=== PATIENT | male | born 1960 | race Caucasian/White ===

== ENCOUNTER 2019-10-04 08:16 | Emergency (ER) | payer OTHER ==
--- NOTE | 2019-10-04 09:34 | EDM.PDOCBH ---
ED HPI GENERAL MEDICAL PROBLEM - General Chief Complaint: Drug or Alcohol Abuse Stated Complaint: EVAL FOR DETOX Time Seen by Provider: 10/04/19 09:20 Source of Information: Reports: Patient, Family. Denies: Old Records History Limitations: Reports: Other (no old records) - History of Present Illness INITIAL COMMENTS - FREE TEXT/NARRATIVE: 59 yo male here with a request for detox, last drank 3 days ago. Has [employer] insurance and apparently [facility] does not accept this. Was on Remeron with good control of depression, but stopped it due to day time sedation. Would like to go back on this med now. Other antidepressants have not worked for him. Sister tells me he has been discussing suicide. Comes here today voluntarily for tx. His last detox tx was about 18 yrs ago. Living with his sister now, was recently homeless after losing his job due to ETOH. Onset: Gradual Duration: Week(s):, Constant Location: Reports: Generalized Quality: Reports: Other (no pain reported) Severity: Moderate (drinking problem) Improves with: Reports: Other (doing better now that he is living with his sister and is not alone) Worsens with: Reports: Other (drinking, social isolation. ) Context: Reports: Other (see HPI) Associated Symptoms: Reports: Other (depression) Treatments CORPORATE ATTORNEY: Reports: Other (see below) (none) - Related Data Allergies Allergy/AdvReac Type Severity Reaction Status Date / Time No Known Allergies Allergy Verified 10/04/19 08:42 Home Meds: Home Meds NK [No Known Home Meds] 10/04/19 [History] Past Medical History HEENT History: Reports: Impaired Vision Musculoskeletal History: Reports: Fracture Psychiatric History: Reports: Addiction - Infectious Disease History Infectious Disease History: Reports: Chicken Pox, Mumps - Past Surgical History Musculoskeletal Surgical History: Reports: Other (See Below) Other Musculoskeletal Surgeries/Procedures:: hip and ankle surgery Social & Family History - Tobacco Use Smoking Status *Q: Heavy Tobacco Smoker Years of Tobacco use: 45 Packs/Tins Daily: 0.5 - Caffeine Use Caffeine Use: Reports: Coffee - Recreational Drug Use Recreational Drug Use: No ED ROS GENERAL - Review of Systems Review Of Systems: See Below Constitutional: Reports: No Symptoms HEENT: Reports: No Symptoms Respiratory: Reports: No Symptoms Cardiovascular: Reports: No Symptoms Endocrine: Reports: No Symptoms GI/Abdominal: Reports: No Symptoms : Reports: No Symptoms Musculoskeletal: Reports: No Symptoms Skin: Reports: No Symptoms Neurological: Reports: Tremors (mild) Psychiatric: Reports: No Symptoms ED EXAM, BEHAVIORAL HEALTH - Physical Exam Exam: See Below Exam Limited By: No Limitations General Appearance: Alert, WD/WN, No Apparent Distress Eye Exam: Bilateral Eye: Normal Inspection Ears: Normal External Exam, Normal Canal, Hearing Grossly Normal Nose: Normal Inspection, No Blood Throat/Mouth: Normal Inspection, Normal Lips, Normal Oropharynx, Normal Voice, No Airway Compromise Head: Atraumatic, Normocephalic Neck: Normal Inspection, Supple, Non-Tender Respiratory/Chest: No Respiratory Distress, Lungs Clear, Normal Breath Sounds, No Accessory Muscle Use Cardiovascular: Regular Rate, Rhythm, No Edema GI/Abdominal: Normal Bowel Sounds, Soft, Non-Tender, No Distention Back Exam: Normal Inspection. No: CVA Tenderness (R), CVA Tenderness (L) Extremities: Normal Inspection, Normal Range of Motion, Non-Tender, No Pedal Edema Neurological: Alert, Normal Mood/Affect, CN II-XII Intact, Normal Cognition, No Motor/Sensory Deficits, Oriented x 3 Psychiatric: Alert, Normal Affect, Normal Cognition, Normal Mood, Oriented Skin Exam: Warm, Dry, Intact, Normal color, No rash COURSE, BEHAVIORAL HEALTH COMP - Course Vital Signs: Last Vital Signs Temp 35.9 C 10/04/19 08:48 Pulse 109 H 10/04/19 08:48 Resp 18 10/04/19 08:48 BP 149/106 H 10/04/19 08:48 Pulse Ox 96 10/04/19 08:48 Orders, Labs, Meds: Active Orders 24 hr Category Date Time Status BASIC METABOLIC PANEL,BMP [CHEM] Stat Lab 10/04/19 09:44 Stop Req TSH ULTRASENSITIVE [CHEM] Stat Lab 10/04/19 09:44 Stop Req UA W/MICROSCOPIC [URIN] Stat Lab 10/04/19 09:38 Stop Req Laboratory Tests 10/04/19 10/04/19 10/04/19 Range/Units 08:41 08:42 09:44 WBC 8.1 (4.5-11.0) K/uL RBC 4.41 (4.30-5.90) M/uL Hgb 14.0 (12.0-15.0) g/dL Hct 42.9 (40.0-54.0) % MCV 97 (80-98) fL MCH 32 H (27-31) pg MCHC 33 (32-36) % Plt Count 471 H (150-400) K/uL Urine Opiates Screen Negative (NEGATIVE) Ur Oxycodone Screen Negative (NEGATIVE) Urine Methadone Screen Negative (NEGATIVE) Ur Propoxyphene Screen Negative (NEGATIVE) Ur Barbiturates Screen Negative (NEGATIVE) Ur Tricyclics Screen Negative (NEGATIVE) Ur Phencyclidine Scrn Negative (NEGATIVE) Ur Amphetamine Screen Negative (NEGATIVE) U Methamphetamines Scrn Negative (NEGATIVE) Urine MDMA Screen Negative (NEGATIVE) U Benzodiazepines Scrn Negative (NEGATIVE) U Cocaine Metab Screen Negative (NEGATIVE) U Marijuana (THC) Screen Negative (NEGATIVE) Ethyl Alcohol < 3 mg/dL Departure - Departure Time of Disposition: 09:50 Disposition: Home, Self-Care 01 Condition: Fair Clinical Impression: Alcohol abuse Alcohol dependence Qualifiers: Substance use status: unspecified alcohol-induced disorder Qualified Code(s): F10.29 - Alcohol dependence with unspecified alcohol-induced disorder Depression Qualifiers: Depression Type: major depressive disorder Major depression recurrence: recurrent Active/Remission status: currently active Major depression episode severity: moderate Qualified Code(s): F33.1 - Major depressive disorder, recurrent, moderate - Discharge Information *PRESCRIPTION DRUG MONITORING PROGRAM REVIEWED*: No *COPY OF PRESCRIPTION DRUG MONITORING REPORT IN PATIENT LEILANI: No Referrals: PCP,None [Primary Care Provider] - Forms: ED Department Discharge Additional Instructions: Go directly to [facility] for screening for their program. Sepsis Event Note - Evaluation Sepsis Screening Result: No Definite Risk - Focused Exam Vital Signs: Vital Signs Temp Pulse Resp BP Pulse Ox 10/04/19 08:48 35.9 C 109 H 18 149/106 H 96 10/04/19 08:42 35.9 C 109 H 18 149/106 H 96 Date Exam was Performed: 10/04/19 Time Exam was Performed: 09:48 - My Orders Last 24 Hours: My Active Orders 10/04/19 09:38 UA W/MICROSCOPIC [URIN] Stat 10/04/19 09:44 BASIC METABOLIC PANEL,BMP [CHEM] Stat TSH ULTRASENSITIVE [CHEM] Stat - Assessment/Plan Last 24 Hours: My Active Orders 10/04/19 09:38 UA W/MICROSCOPIC [URIN] Stat 10/04/19 09:44 BASIC METABOLIC PANEL,BMP [CHEM] Stat TSH ULTRASENSITIVE [CHEM] Stat
== END 2019-10-04 10:08 | disposition home or self-care (01) ==
LOC: JP.ED 08:16
DX: F33.1 Major depressive disorder, recurrent, moderate (principal); F10.29 Alcohol dependence with unspecified alcohol-induced disorder
CPT/HCPCS: 36415; 80305-QW; 85027; 99283; 99284; G0480

== ENCOUNTER 2020-05-08 17:06 | Emergency (ER) | payer OTHER ==
--- NOTE | 2020-05-08 18:06 | EDM.PDOC ---
ED HPI GENERAL MEDICAL PROBLEM - General Chief Complaint: Abdominal Pain Stated Complaint: FEELING FEELING Time Seen by Provider: 05/08/20 17:57 Source of Information: Reports: Patient, RN Notes Reviewed History Limitations: Reports: No Limitations - History of Present Illness INITIAL COMMENTS - FREE TEXT/NARRATIVE: 60-year-old gentleman presents emergency department a complaint of abdominal pain he states been going on for the last couple days has had some nausea and vomiting regular stools no fevers no shortness of breath or chest pain does have a history of abdominal surgeries Abdomen Pain Score (Numeric/FACES): 4 - Related Data Allergies Allergy/AdvReac Type Severity Reaction Status Date / Time No Known Allergies Allergy Verified 05/08/20 17:20 Home Meds: Home Meds NK [No Known Home Meds] 10/04/19 [History] Past Medical History HEENT History: Reports: Impaired Vision Gastrointestinal History: Reports: None Musculoskeletal History: Reports: Fracture Neurological History: Reports: Concussion, Head Trauma Psychiatric History: Reports: Addiction, Depression Endocrine/Metabolic History: Reports: Obesity/BMI 30+ - Infectious Disease History Infectious Disease History: Reports: Chicken Pox, Mumps - Past Surgical History Head Surgeries/Procedures: Reports: None HEENT Surgical History: Reports: None GI Surgical History: Reports: Cholecystectomy, Other (See Below) Other GI Surgeries/Procedures: liver Endocrine Surgical History: Reports: None Neurological Surgical History: Reports: None Musculoskeletal Surgical History: Reports: Other (See Below) Other Musculoskeletal Surgeries/Procedures:: hip and ankle surgery Dermatological Surgical History: Reports: None Social & Family History - Tobacco Use Smoking Status *Q: Current Every Day Smoker Years of Tobacco use: 45 Packs/Tins Daily: 1 Used Tobacco, but Quit: No Second Hand Smoke Exposure: Yes - Caffeine Use Caffeine Use: Reports: None - Recreational Drug Use Recreational Drug Use: No ED ROS GENERAL - Review of Systems Review Of Systems: See Below Constitutional: Denies: Fever, Chills HEENT: Reports: No Symptoms Respiratory: Reports: No Symptoms Cardiovascular: Reports: No Symptoms GI/Abdominal: Reports: Abdominal Pain, Nausea, Vomiting. Denies: Constipation, Diarrhea : Reports: No Symptoms ED EXAM, GI/ABD - Physical Exam Exam: See Below Exam Limited By: No Limitations General Appearance: Alert, WD/WN, No Apparent Distress Respiratory/Chest: No Respiratory Distress, Lungs Clear, Normal Breath Sounds, No Accessory Muscle Use, Chest Non-Tender Cardiovascular: Regular Rate, Rhythm, No Murmur GI/Abdominal Exam: Normal Bowel Sounds, Soft, No Distention, Tender (Tender periumbilical region) Course - Vital Signs Last Recorded V/S: Last Vital Signs Temp 97 F 05/08/20 17:21 Pulse 120 H 05/08/20 17:21 Resp 20 05/08/20 17:21 BP 150/108 H 05/08/20 17:21 Pulse Ox 95 05/08/20 17:21 Departure - Departure Time of Disposition: 18:05 Disposition: Home, Self-Care 01 Condition: Undetermined Clinical Impression: Abdominal pain Qualifiers: Abdominal location: periumbilical Qualified Code(s): R10.33 - Periumbilical pain - Discharge Information Instructions: Abdominal Pain, Adult Referrals: PCP,None [Primary Care Provider] - Sepsis Event Note (ED) - Evaluation Sepsis Screening Result: No Definite Risk - Focused Exam Vital Signs: Vital Signs Temp Pulse Resp BP Pulse Ox 05/08/20 17:21 97 F 120 H 20 150/108 H 95 05/08/20 17:19 97 F 120 H 20 150/108 H 95 - Assessment/Plan Plan: Assessment Acuity = acute Site and laterality = abdominal pain Etiology = unknown Manifestations = nausea and vomiting Location of injury = Home Lab values = none Plan Patient declined any further evaluation or work-up I offered him my blood work image studies pain control he declined he preferred to just go home This note was dictated using [employer] voice recognition software please call with any questions on syntax or grammar.
== END 2020-05-08 18:06 | disposition left against medical advice (07) ==
LOC: JP.ED 17:06
DX: R10.33 Periumbilical pain (principal); F17.210 Nicotine dependence, cigarettes, uncomplicated; E66.9 Obesity, unspecified; Z68.30 Body mass index [BMI] 30.0-30.9, adult
CPT/HCPCS: 99282; 99283

== ENCOUNTER → 2021-03-13 | Emergency (ER) | payer OTHER | LOC: JP.ED 23:17 | DX: Z53.21 Procedure and treatment not carried out due to patient leaving prior to being seen by health care provider (principal) ==

== ENCOUNTER 2021-08-18 22:08 | Emergency (ER) | payer SELFPAY ==
[2021-08-18] MEDS ORDERED: MVI, Adult with Vitamin K 10 ML, Thiamine 100 MG, Folic Acid 1 MG, Magnesium Sulfate 3 ... IV SCH ×5 (23:00)
--- NOTE | 2021-08-19 02:33 | EDM.PDOCBH ---
ED HPI GENERAL MEDICAL PROBLEM - General Chief Complaint: Drug or Alcohol Abuse Stated Complaint: EVAL FOR DETOX Time Seen by Provider: 08/18/21 22:20 Source of Information: Reports: Patient History Limitations: Reports: Intoxication - History of Present Illness INITIAL COMMENTS - FREE TEXT/NARRATIVE: 61-year-old male arrives very intoxicated, asking for fluids and Ativan. He would also go to detox if we were able to find him a place, however he will go to [facility] because "they will take his insurance". He claims he started drinking 3 days ago, has not drank for the past year. No other specific complaints other than his chronic depression but he is not suicidal. Onset: Unknown/Unsure Associated Symptoms: Denies: Chest Pain, Nausea/Vomiting, Shortness of Breath - Related Data Allergies Allergy/AdvReac Type Severity Reaction Status Date / Time No Known Allergies Allergy Verified 05/08/20 17:20 Home Meds: Home Meds NK [No Known Home Meds] 10/04/19 [History] Past Medical History HEENT History: Reports: Impaired Vision Gastrointestinal History: Reports: None Musculoskeletal History: Reports: Fracture Neurological History: Reports: Concussion, Head Trauma Psychiatric History: Reports: Addiction, Depression Endocrine/Metabolic History: Reports: Obesity/BMI 30+ - Infectious Disease History Infectious Disease History: Reports: Chicken Pox, Mumps - Past Surgical History Head Surgeries/Procedures: Reports: None HEENT Surgical History: Reports: None GI Surgical History: Reports: Cholecystectomy, Other (See Below) Other GI Surgeries/Procedures: liver Endocrine Surgical History: Reports: None Neurological Surgical History: Reports: None Musculoskeletal Surgical History: Reports: Other (See Below) Other Musculoskeletal Surgeries/Procedures:: hip and ankle surgery Dermatological Surgical History: Reports: None Social & Family History - Tobacco Use Tobacco Use Status *Q: Current Every Day Tobacco User Years of Tobacco use: 50 Packs/Tins Daily: 0.5 - Caffeine Use Caffeine Use: Reports: Coffee - Recreational Drug Use Recreational Drug Use: No ED ROS GENERAL - Review of Systems Review Of Systems: See Below Constitutional: Denies: Fever, Chills Respiratory: Denies: Shortness of Breath Cardiovascular: Denies: Chest Pain GI/Abdominal: Denies: Nausea, Vomiting Musculoskeletal: Reports: No Symptoms Skin: Reports: No Symptoms Neurological: Denies: Headache Psychiatric: Reports: Depression ED EXAM, BEHAVIORAL HEALTH - Physical Exam Exam: See Below Exam Limited By: Intoxication General Appearance: Alert, No Apparent Distress Head: Atraumatic Respiratory/Chest: No Respiratory Distress, Lungs Clear Cardiovascular: Regular Rate, Rhythm, Tachycardia Extremities: No Pedal Edema Neurological: Alert, Other (Fairly intoxicated) Psychiatric: Depressed Mood Skin Exam: Warm, Dry COURSE, BEHAVIORAL HEALTH COMP - Course Vital Signs: Last Vital Signs Temp 98.2 F 08/18/21 22:25 Pulse 136 H 08/18/21 22:25 Resp 22 H 08/18/21 22:25 BP 155/110 H 08/18/21 22:25 Pulse Ox 98 08/18/21 22:25 Orders, Labs, Meds: Active Orders 24 hr Category Date Time Status BASIC METABOLIC PANEL,BMP [CHEM] Stat Lab 08/18/21 22:56 Ordered CBC WITH AUTO DIFF [HEME] Stat Lab 08/18/21 22:56 Ordered ETHANOL BLOOD MEDICAL [CHEM] Stat Lab 08/18/21 22:56 Ordered Medications Discontinued Medications Generic Name Dose Route Start Last Admin Trade Name Anabell PRN Reason Stop Dose Admin Multivitamins/Minerals 10 ml/ 1,017.2 mls @ 500 mls/hr 08/18/21 23:00 Thiamine HCl 100 mg/ Folic IV Acid 1 mg/ Magnesium Sulfate 3 ASDIRECTED TALYA gm/ Sodium Chloride Re-Assessment/Re-Exam: Discussed his possible admission to [facility] with Dr. Rudd who is also his primary provider. He said that they would accept him despite his insurance provider, and they would have a bed open in the morning. And EtOH, CBC, BMP and banana bag were ordered, however the patient eloped shortly afterward. Departure - Departure Time of Disposition: 00:55 Disposition: Eloped 07 Clinical Impression: Alcohol dependence Qualifiers: Substance use status: unspecified alcohol-induced disorder Qualified Code(s): F10.29 - Alcohol dependence with unspecified alcohol-induced disorder - Discharge Information Referrals: Jimmy Rudd Sr, MD [Primary Care Provider] - Forms: ED Department Discharge Care Plan Goals: Patient eloped before we could provide any care or evaluation other than his brief history and physical. Sepsis Event Note (ED) - Evaluation Sepsis Screening Result: No Definite Risk - Focused Exam Vital Signs: Vital Signs Temp Pulse Resp BP Pulse Ox 08/18/21 22:25 98.2 F 136 H 22 H 155/110 H 98 08/18/21 22:20 98.2 F 136 H 22 H 155/110 H 98 - My Orders Last 24 Hours: My Active Orders 08/18/21 22:56 BASIC METABOLIC PANEL,BMP [CHEM] Stat CBC WITH AUTO DIFF [HEME] Stat ETHANOL BLOOD MEDICAL [CHEM] Stat - Assessment/Plan Last 24 Hours: My Active Orders 08/18/21 22:56 BASIC METABOLIC PANEL,BMP [CHEM] Stat CBC WITH AUTO DIFF [HEME] Stat ETHANOL BLOOD MEDICAL [CHEM] Stat
== END 2021-08-19 00:55 | disposition left against medical advice (07) ==
LOC: JP.ED 22:08
DX: F10.20 Alcohol dependence, uncomplicated (principal); E66.9 Obesity, unspecified; Z68.29 Body mass index [BMI] 29.0-29.9, adult; Z72.0 Tobacco use
CPT/HCPCS: 99283

== ENCOUNTER 2021-12-22 05:38 | Emergency (ER) | payer OTHER | END 2021-12-22 06:23 | disposition home or self-care (01) | LOC: JP.ED 05:38 | DX: J02.9 Acute pharyngitis, unspecified (principal); R00.0 Tachycardia, unspecified; I10 Essential (primary) hypertension; E66.9 Obesity, unspecified; Z68.28 Body mass index [BMI] 28.0-28.9, adult | CPT/HCPCS: 87081; 87880-QW; 99282; 99283 ==

== ENCOUNTER 2024-10-25 17:35 | Emergency (ER) | payer MEDICARE, OTHER ==
[2024-10-25 18:54] LABS: BASOPHILS ABSOLUTE AUTO 0.05 K/uL (0.00-0.10); BASOPHILS PERCENT AUTO 0.3 % (0.1-1.3); EOSINOPHILS ABSOLUTE AUTO 0.28 K/uL (0.00-0.40); EOSINOPHILS PERCENT AUTO 1.5 % (0.0-5.4); HEMATOCRIT 44.1 % (38.4-49.7); HEMOGLOBIN 15.7 g/dL (12.9-16.9); IMMATURE GRAN ABSOLUTE AUTO 0.08 K/uL (0.00-0.23); IMMATURE GRAN PERCENT AUTO 0.4 % (0.0-0.7); LYMPHOCYTES ABSOLUTE AUTO 2.27 K/uL (0.8-3.3); LYMPHOCYTES PERCENT AUTO 11.9 % (11.4-47.7); MEAN CORPUSCULAR HEMOGLOBIN 32.3 pg (31.6-35.5); MEAN CORPUSCULAR HGB CONC 35.6 g/dL (31.6-35.5); MEAN CORPUSCULAR VOLUME 90.7 fL (81.4-99.0); MONOCYTES ABSOLUTE AUTO 1.34 K/uL (0.20-0.90); NEUTROPHILS ABSOLUTE AUTO 15.01 K/uL (1.0-7.6); NEUTROPHILS PERCENT AUTO 78.9 % (40.0-78.1); PLATELET COUNT,PLT 245 K/uL (130-375); RED BLOOD CELL COUNT 4.86 M/uL (4.14-5.76)
[2024-10-25 18:57] LABS: APPEARANCE,URINE CLEAR (CLEAR); BILIRUBIN,URINE NEGATIVE (NEGATIVE); COLOR,URINE YELLOW (YELLOW); GLUCOSE,URINE NEGATIVE (NEGATIVE); KETONES,URINE TRACE mg/dL (NEGATIVE); LEUKOCYTE ESTERASE,URINE NEGATIVE (NEGATIVE); NITRITE,URINE NEGATIVE (NEGATIVE); OCCULT BLOOD,URINE LARGE (NEGATIVE); PROTEIN,URINE 100 mg/dL (NEGATIVE); UROBILINOGEN,URINE 0.2 EU/dL (0.2-1.0)
[2024-10-25 19:00] LABS: AMORPHOUS SEDIMENT,URINE NOT SEEN; BACTERIA,URINE FEW; EPITHELIAL CELLS,URINE MODERATE; MUCUS,URINE FEW; RBC,URINE 30-40 (0-5); WBC,URINE 0-5 (0-5)
[2024-10-25] MEDS: Ondansetron 4 MG/2 ML SDV IVPUSH ONE (19:00)
[2024-10-25] MEDS: Ketorolac 30 MG/ML SDV IVPUSH ONE (19:06)
[2024-10-25] MEDS: Sodium Chloride 0.9% 1,000 ML IV SCH (19:11)
[2024-10-25 19:13] LABS: ALANINE AMINOTRANSFERASE,ALT 26 U/L (12-78); ALBUMIN 4.1 g/dL (3.4-5.0); ALKALINE PHOSPHATASE 73 U/L (46-116); ASPARTATE AMNIOTRANSFERASE,AST 23 U/L (15-37); BILIRUBIN TOTAL 0.4 mg/dL (0.2-1.0); BLOOD UREA NITROGEN,BUN 17 mg/dL (7-18); CALCIUM 9.6 mg/dL (8.5-10.1); CARBON DIOXIDE,CO2 21 mmol/L (21-32); CHLORIDE,CL 103 mmol/L (100-108); CREATININE 1.2 mg/dL (0.8-1.3); EST CRCL DRUG DOSING (CG) 63.37 mL/min; ESTIMATED GFR 67 mL/min (>60); GLUCOSE RANDOM 98 mg/dL (74-106); POTASSIUM,K 3.5 mmol/L (3.6-5.2); PROTEIN TOTAL,TP 8.1 g/dL (6.4-8.2); SODIUM,NA 138 mmol/L (140-148)
[2024-10-25 19:16] LABS: ANION GAP 17.5 mmol/L (5.0-14.0)
[2024-10-25] MEDS: cefTRIAXone 2 GM in Sodium Chloride 0.9% 50 ML IV ONE (21:56)
[2024-10-25] MEDS ORDERED: Tamsulosin 0.4 MG Cap.ER PO ONE (22:35)
== END 2024-10-25 23:28 | disposition home or self-care (01) ==
LOC: JP.ED 17:35
DX: N13.2 Hydronephrosis with renal and ureteral calculous obstruction (principal); E66.9 Obesity, unspecified; Z90.49 Acquired absence of other specified parts of digestive tract; Z68.28 Body mass index [BMI] 28.0-28.9, adult
CPT/HCPCS: 36415; 74176; 80053; 81001; 85025; 86140; 96361; 96365; 96375; 99284; J0696; J1885; J2405; J7030

== ENCOUNTER 2025-05-21 03:24 | Emergency (ER) | payer MEDICARE, OTHER | END 2025-05-21 04:08 | disposition left against medical advice (07) | LOC: JP.ED 03:24 | DX: F41.9 Anxiety disorder, unspecified (principal); I10 Essential (primary) hypertension; E66.9 Obesity, unspecified; F17.200 Nicotine dependence, unspecified, uncomplicated; Z90.49 Acquired absence of other specified parts of digestive tract; Z68.29 Body mass index [BMI] 29.0-29.9, adult | CPT/HCPCS: 99283 ==